=== PATIENT | male | born 2005 | race African-American/Black ===

== ENCOUNTER 2024-07-01 01:00 | Emergency (ER) | payer OTHER ==
[~2024-07-01] VITALS: Ht 175.3 cm; Wt 70.5 kg
[2024-07-01] MEDS ORDERED: Ondansetron 4 MG/2 ML VIAL IV ONE (01:36)
[2024-07-01] MEDS ORDERED: fentaNYL 50 MCG/ML 2 ML VIAL IV ONE (01:37)
[2024-07-01] MEDS ORDERED: Ketorolac 15 MG/ML VIAL IV ONE (02:15)
[2024-07-01 02:34] VITALS: BP 121/70; PULSE 64
== END 2024-07-01 02:35 | disposition home or self-care (01) ==
LOC: COL.ER 01:00
DX: S43.004A Unspecified dislocation of right shoulder joint, initial encounter (principal); W22.8XXA Striking against or struck by other objects, initial encounter
CPT/HCPCS: J1885; J2405; J3010